=== PATIENT | female | born 1960 | race Caucasian/White ===

== ENCOUNTER → 2016-12-28 | Outpatient (CLI) | payer BC ==
[~2016-12-28] MED LIST: ANTIDEPRESSANT
== END | disposition home or self-care (01) ==
LOC: C.PAPS 11:20
PROVIDERS: ATTEND Obstetrics & Gynecology
DX: Z01.419 Encounter for gynecological examination (general) (routine) without abnormal findings (principal)

== ENCOUNTER → 2016-12-28 | Outpatient (CLI) | payer BC ==
--- NOTE | 2016-12-28 13:42 | MAMMOGRAPHY REPORT ---
BILATERAL DIGITAL SCREENING MAMMOGRAM TOMOSYNTHESIS WITH CAD: 12/28/2016 CLINICAL HISTORY: Routine screening. Patient has no complaints. TECHNIQUE: Breast tomosynthesis in addition to standard 2D mammography was performed. Current study was also evaluated with a Computer Aided Detection (CAD) system. COMPARISON: Comparison is made to exams dated: 01/01/2015 ultrasound, 01/01/2015 mammogram, 12/19/2014 ma mmogram, and 07/02/2004 mammogram - [facility]. BREAST COMPOSITION: The tissue of both breasts is heterogeneously dense, which may obscure small mas ses. FINDINGS: No suspicious masses, calcifications, or areas of architectural distortion are noted in ei ther breast. There has been no significant interval change compared to prior exams. IMPRESSION: ACR BI-RADS CATEGORY 1: NEGATIVE There is no mammographic evidence of malignancy. A 1 year screening mammogram is recommended. The pa tient will receive written notification of the results. Approximately 10% of breast cancers are not detected with mammography. A negative mammographic report should not delay biopsy if a clinically suggestive mass is present. Theodora Malave M.D. ah/:12/28/2016 12:28:02 Collet Maker: Melissa MATHEWS(R)(M), [facility] letter sent: Normal 1/2 BI-RADS Code: ACR BI-RADS Category 1: Negative
== END | disposition home or self-care (01) ==
LOC: C.MAMM 10:55
PROVIDERS: ATTEND Obstetrics & Gynecology
DX: Z12.31 Encounter for screening mammogram for malignant neoplasm of breast (principal)

== ENCOUNTER → 2017-04-28 | Outpatient (CLI) | payer BC | END | disposition home or self-care (01) | LOC: C.LAB 19:24 | PROVIDERS: ATTEND Physician Assistant Medical | DX: M79.89 Other specified soft tissue disorders (principal) ==

== ENCOUNTER 2017-05-05 16:05 | Emergency (ER) | payer BC ==
[~2017-05-05] VITALS: Ht 161.3 cm; Wt 72.0 kg
[2017-05-05 16:13] VITALS: TEMP 36.5; Ht 161.3 cm; Wt 72.0 kg
[2017-05-05] MEDS ORDERED: ACETAMINOPHEN 500 MG TAB PO STA (17:33)
[2017-05-05] MEDS ORDERED: ONDANSETRON INJ 2 MG/ML 2 ML VIAL IV STA (17:33)
[2017-05-05] MEDS ORDERED: GI COCKTAIL PO STA (17:33)
--- NOTE | 2017-05-05 17:39 | EMERGENCY ROOM VISIT NOTE ---
History Report prepared by Ann: Carlo Palencia Under the Supervision of: Dr. Rangel Navarro M.D. First contact with patient: 17:14 Chief Complaint: ALLERGIC REACTION Stated Complaint: STOMACH PAIN;ALLERGIC REACTION TO MEDICATION Nursing Triage Summary: Pt states, "I had an infection in my finger, which I still have. I have been taking three different abx. I am either having a reaction to Bactrim or Penicillin. They told me to take Zantac and Zyrtec. My back and my stomach are hurting me so bad. I have been to the dr six times, I was just there today. My stomach started to hurt really bad today." Nausea. Denies SOB and lightheadedness. History of Present Illness The patient is a 57 year old white female with no past medical history who presents to the ED with a cc of constant, severe, sharp, abdominal pain beginning last night. Pt states she has been experiencing an infection on her right hand for the past two weeks. She reports she was placed on an antibiotic for four days, and then Bactrim and Penicillin. Pt notes she had an allergic reaction to one of them 2 days ago. She was told to take Zantac and Zyrtec, but nothing is helping. Positive nausea, rash, hives. Negative vomiting, recent travel. LNBM was yesterday. Still has gallbladder. Pt works at airport. Source of History: patient Onset: last night Position: abdomen Symptom Intensity: severe Quality: sharp Timing: constant Associated Symptoms: + nausea, + rash (and hives), No vomiting Review of Systems See HPI for pertinent positives and negatives. A total of ten systems were reviewed and were otherwise negative. Past Medical & Surgical Medical Problems: (1) No Known Active Medical Problems Family History Patient reports no known family medical history. Social History Smoking Status: Former Smoker Marital Status: Occupation Status: employed Current/Historical Medications Scheduled Cetirizine (Zyrtec), 10 MG PO DAILY Ondasetron Odt (Zofran Odt), 4 MG SL Q6H Ranitidine Hcl (Zantac), 150 MG PO DAILY Tramadol Hcl (Ultram), 50 MG PO Q8H Allergies Coded Allergies: Iodine (Unverified Allergy, Severe, ., 05/05/17) Shellfish Allergy (Unverified Allergy, Severe, ., 05/05/17) Penicillin V (Unverified Allergy, Intermediate, RASH, 05/05/17) PATIENT DEVELOPED ITCHY RASH ON DAY 6 OF PENICILLIN/BACTRIM COMBINATION THERAPY. PATIENT DOES NOT RECALL RECEIVING EITHER PENICILLIN OR BACTRIM PRIOR TO THIS COURSE Sulfamethoxazole w/Trimethoprim (Verified Allergy, Intermediate, RASH, 05/05/17) PATIENT DEVELOPED ITCHY RASH ON DAY 6 OF PENICILLIN/BACTRIM COMBINATION THERAPY. PATIENT DOES NOT RECALL RECEIVING EITHER PENICILLIN OR BACTRIM PRIOR TO THIS COURSE Physical Exam Vital Signs Date Time Temp Pulse Resp B/P (MAP) Pulse Ox O2 Delivery O2 Flow Rate FiO2 05/05/17 21:45 77 18 141/82 95 Room Air 05/05/17 21:00 85 16 145/79 95 Room Air 05/05/17 19:22 73 18 144/80 98 Room Air 05/05/17 17:50 73 18 152/85 99 Room Air 05/05/17 16:13 36.5 77 18 146/78 96 Room Air 05/05/17 16:11 95 Room Air Physical Exam GENERAL: Awake, alert, well-appearing, NAD HENT: Normocephalic, atraumatic. Posterior pharynx is clear with no edema or erythema. No sloughing of interoral mucosa. EYES: Normal conjunctiva. Sclera non-icteric. No conjunctival injection NECK: Supple. No nuchal rigidity. FROM. No stridor RESPIRATORY: CTAB, no rhonchi, wheezing, crackles CARDIAC: RRR, no MRG ABDOMEN: Soft, ND, BS+, mild epigastric and RUQ pain, negative Ventura's MSK: No chest wall TTP, no LE edema NEURO: GCS 15, CN 2-12 intact, moves all 4s on command SKIN: No jaundice noted. No sloughing of skin. Right first index finger has some peeling. Medical Decision & Procedures ER Provider Diagnostic Interpretation: Radiology results as stated below per my review and radiologist interpretation: ABDOMEN 2VIEW W/PA CHEST RTN HISTORY: 57 years-old Female ABDOMINAL PAIN/GI acute generalized abdominal pain COMPARISON: None available TECHNIQUE: PA view of the chest with erect and supine views of the abdomen FINDINGS: Cardiac silhouette is within normal limits. There is mild prominence of the pulmonary arteries. No pneumothorax. Coarsened interstitial opacities are noted within the lung bases suggesting chronic changes, however no comparison available. No pneumothorax, pleural effusion or focal alveolar airspace consolidation. Bones of the chest appear grossly intact. Sigmoidal scoliosis of the thoracolumbar spine. No pneumoperitoneum on the upright projection. Bowel gas pattern is nonobstructive. Probable phleboliths of the pelvis without definite urolith or organomegaly identified. IMPRESSION: 1. Nonobstructive bowel gas pattern without pneumoperitoneum. 2. Mild interstitial coarsening of the lung bases suggests chronic changes. The above report was generated using voice recognition software. It may contain grammatical, syntax or spelling errors. Electronically signed by: Shaun Philippe M.D. 05/05/2017 7:27 PM Dictated Date/Time: 05/05/2017 7:25 PM ABDOMEN AND PELVIS CT WITH IV CONTRAST CT DOSE: 282.17 mGy.cm HISTORY: Acute generalized abdominal pain with nausea ab pain TECHNIQUE: Multiaxial CT images of the abdomen and pelvis were performed following the use of intravenous contrast. 94 no Optiray 320 IV contrast administered. A dose lowering technique was utilized adhering to the principles of ALARA. COMPARISON STUDY: Acute abdominal series radiographs of same day. FINDINGS: Lung bases are generally clear. There is no pneumatosis or pneumoperitoneum identified. Imaged inferior cardiac chambers are unremarkable. The liver, spleen, gallbladder, pancreas and right adrenal gland are unremarkable. Mild thickening of the left adrenal gland. Low attenuating lesions of the kidneys bilaterally suggests cysts, largest of which measures 10 mm within the interpolar left kidney. There is no renal calculi or hydronephrosis identified. The ureters, urinary bladder, uterus and adnexa are unremarkable. The aorta is normal in course and caliber. No aneurysm. No bulky retroperitoneal adenopathy identified. Small sliding-type hiatal hernia with fluid-filled distal esophagus. Fluid-filled stomach is noted. There is mild wall thickening in the region of the gastric antrum and pylorus. No significant surrounding inflammatory stranding. No bowel obstruction or focal small bowel wall thickening. There is decreased luminal caliber with wall thickening and relative ahaustral fold pattern involving the colon extending from the mid transverse colon through the mid sigmoid without significant surrounding inflammatory stranding. The appendix appears normal. Soft tissues are unremarkable. The bones appear intact. Only mild degenerative changes are noted. IMPRESSION: 1. Decreased luminal caliber with wall thickening involving the colon extends from the mid transverse colon through the mid sigmoid without significant surrounding inflammatory stranding. These findings may be secondary to nondistention or mild colitis. Correlate with clinical exam and patient history. 2. Small sliding-type hiatal hernia with fluid within the distal esophagus suggesting reflux. 3. Suggestion of mild nonspecific wall thickening involving the distal gastric antrum/pylorus. 4. Normal appendix. Electronically signed by: Shaun Philippe M.D. 05/05/2017 9:10 PM Dictated Date/Time: 05/05/2017 9:00 PM Laboratory Results 05/05/17 17:45 Red Blood Count 4.26, Mean Corpuscular Volume 90.8, Mean Corpuscular Hemoglobin 31.2, Mean Corpuscular Hemoglobin Concent 34.4, Mean Platelet Volume 10.7, Neutrophils (%) (Auto) 78.9, Lymphocytes (%) (Auto) 14.3, Monocytes (%) (Auto) 5.8, Eosinophils (%) (Auto) 0.5, Basophils (%) (Auto) 0.1, Neutrophils # (Auto) 6.29, Lymphocytes # (Auto) 1.14, Monocytes # (Auto) 0.46, Eosinophils # (Auto) 0.04, Basophils # (Auto) 0.01 05/05/17 17:45 Test 05/05/17 17:45 05/05/17 19:18 White Blood Count 7.97 K/uL (4.8-10.8) Red Blood Count 4.26 M/uL (4.2-5.4) Hemoglobin 13.3 g/dL (12.0-16.0) Hematocrit 38.7 % (37-47) Mean Corpuscular Volume 90.8 fL (80-100) Mean Corpuscular Hemoglobin 31.2 pg (25-34) Mean Corpuscular Hemoglobin Concent 34.4 g/dl (32-36) Platelet Count 274 K/uL (130-400) Mean Platelet Volume 10.7 fL (7.4-10.4) Neutrophils (%) (Auto) 78.9 % Lymphocytes (%) (Auto) 14.3 % Monocytes (%) (Auto) 5.8 % Eosinophils (%) (Auto) 0.5 % Basophils (%) (Auto) 0.1 % Neutrophils # (Auto) 6.29 K/uL (1.4-6.5) Lymphocytes # (Auto) 1.14 K/uL (1.2-3.4) Monocytes # (Auto) 0.46 K/uL (0.11-0.59) Eosinophils # (Auto) 0.04 K/uL (0-0.5) Basophils # (Auto) 0.01 K/uL (0-0.2) RDW Standard Deviation 40.0 fL (36.4-46.3) RDW Coefficient of Variation 12.2 % (11.5-14.5) Immature Granulocyte % (Auto) 0.4 % Immature Granulocyte # (Auto) 0.03 K/uL (0.00-0.02) Anion Gap 7.0 mmol/L (3-11) Est Creatinine Clear Calc Drug Dose 76.6 ml/min Estimated GFR () 98.6 Estimated GFR (Non- 85.1 BUN/Creatinine Ratio 10.4 (10-20) Calcium Level 8.8 mg/dl (8.5-10.1) Total Bilirubin 0.4 mg/dl (0.2-1) Direct Bilirubin < 0.1 mg/dl (0-0.2) Aspartate Amino Transf (AST/SGOT) 22 U/L (15-37) Alanine Aminotransferase (ALT/SGPT) 32 U/L (12-78) Alkaline Phosphatase 70 U/L (45-117) Troponin I < 0.015 ng/ml (0-0.045) Total Protein 7.8 gm/dl (6.4-8.2) Albumin 3.7 gm/dl (3.4-5.0) Lipase 224 U/L (73-393) Urine Color YELLOW Urine Appearance TURBID (CLEAR) Urine pH >= 9.0 (4.5-7.5) Urine Specific [place] 1.022 (1.000-1.030) Urine Protein NEG (NEG) Urine Glucose (UA) NEG (NEG) Urine Ketones 1+ (NEG) Urine Occult Blood NEG (NEG) Urine Nitrite NEG (NEG) Urine Bilirubin NEG (NEG) Urine Urobilinogen NEG (NEG) Urine Leukocyte Esterase TRACE (NEG) Urine WBC (Auto) 1-5 /hpf (0-5) Urine RBC (Auto) 0-4 /hpf (0-4) Urine Hyaline Casts (Auto) 0 /lpf (0-5) Urine Epithelial Cells (Auto) 20-30 /lpf (0-5) Urine Bacteria (Auto) NEG (NEG) Urine Crystals AMORPHOUS SEDIMENT (NONE Laboratory results reviewed by me Medications Administered Medications (Trade) Dose Ordered Sig/Kelsey Route Start Time Stop Time Status Last Admin Dose Admin Ondansetron HCl (Zofran Inj) 4 mg NOW STAT IV 05/05/17 17:33 05/05/17 17:35 DC 05/05/17 17:56 4 MG Acetaminophen (Tylenol Tab) 1,000 mg NOW STAT PO 05/05/17 17:33 05/05/17 17:35 DC 05/05/17 17:58 1,000 MG Famotidine (Pepcid Tab) 20 mg NOW ONCE PO 05/05/17 17:45 05/05/17 17:46 DC 05/05/17 17:57 20 MG Lidocaine HCl (Viscous Lidocaine 2% Soln) 20 ml STK-MED ONCE .ROUTE 05/05/17 17:52 05/05/17 17:53 DC 05/05/17 17:57 20 ML Al Hydroxide/Mg Hydroxide (Maalox Susp) 30 ml STK-MED ONCE .ROUTE 05/05/17 17:52 05/05/17 17:53 DC 05/05/17 17:57 30 ML Morphine Sulfate (MoRPHine SULFATE INJ) 6 mg NOW STAT IV 05/05/17 18:57 05/05/17 18:58 DC 05/05/17 19:16 6 MG Diphenhydramine HCl (Benadryl Inj) 25 mg NOW STAT IV 05/05/17 20:12 05/05/17 20:13 DC 05/05/17 20:20 25 MG ECG Indication: abdominal pain Rate (beats per minute): 70 Rhythm: normal sinus Findings: other (Normal interval and axis, no other STS changes or TWI) ED Course 1720: The patient was evaluated in room C08. A complete history and physical exam was performed. 1851: I reevaluated the patient. I told her that her blood work looks not concerning. She is still not feeling well. 1950: I reevaluated the patient. She is currently getting a CT scan. 2133: I reevaluated the patient. Discussed results and discharge instructions: she verbalized understanding and agreement. The patient is ready for discharge. Medical Decision The patient is a 57 year old white female with no past medical history who presents to the ED with a cc of constant, severe, sharp, abdominal pain beginning last night. Differential diagnosis: Etiologies such as appendicitis, diverticulitis, PUD, biliary pathology, UTI, pancreatitis, obstruction, mesenteric ischemia, aortic pathology, infections, inflammatory bowel disease, renal colic, as well as others were entertained. Patient was seen and evaluated the bedside. Patient did have a recent right index finger infection for which she was started on penicillin and Bactrim. This was initiated on Monday she noticed some symptoms about 4-5 days later. She states she had a mild rash. She denies any shortness of breath or chest pain. Patient has had some gastrointestinal symptoms. She's had nausea without vomiting. Patient had a recent bowel movement which was normal. Patient denies any other recent travel or changes in diet. On exam the patient is very well-appearing does not exhibit any rashes and does not involve the oral or conjunctival mucosa. Patient does not have any petechiae or purpura. Patient did have blood work that was completed along with symptomatically control. Upon reassessment patient was still feeling mildly uncomfortable. Patient is white blood cell count within normal limits. Patient has no elevations in her LFTs or lipase. Patient troponin negative. Patient had a nonischemic EKG. I doubt this is atypical chest pain or ACS. Patient did have a urinalysis added along with plain films. Patient was given additional pain medication. Patient's CT did show some nonspecific colitis without any obstruction. I did inform the patient for findings. Patient was told to try yogurt a probiotic to continue take pain medication. Patient was told to stop the antibiotics and watch the finger. Given that the finger appears much improved at the patient intimated appears as though she likely had some significant swelling that the skin will eventually fall off as it was likely edematous beforehand. Patient does have follow-up for the finger on Monday. Patient was agreeable with this plan of care. Patient was deemed suitable for outpatient follow-up and treatment. Patient was given strict follow-up, discharge, and return precautions. All questions were answered. Patient was deemed suitable for outpatient follow-up at this time. Patient agreed with the plan of care and was safely discharged home. Impression Primary Impression: Adverse reaction to drug Additional Impressions: Abdominal pain Acute colitis Scribe Attestation The scribe's documentation has been prepared under my direction and personally reviewed by me in its entirety. I confirm that the note above accurately reflects all work, treatment, procedures, and medical decision making performed by me. Departure Information Dispostion Home / Self-Care Prescriptions Ondasetron Odt (ZOFRAN ODT) 4 Mg Tab 4 MG SL Q6H for Nausea, #6 TAB Prov: Rangel Navarro M.D. 05/05/17 Tramadol Hcl (ULTRAM) 50 Mg Tab 50 MG PO Q8H, #12 TAB PRN PAIN Prov: Rangel Navarro M.D. 05/05/17 Referrals Aaron Houston M.D. (PCP) Forms HOME CARE DOCUMENTATION FORM, IMPORTANT VISIT INFORMATION Patient Instructions ED Gastroenteritis Viral, My [facility] Additional Instructions Please return to the emergency department if you have worsening or recurrent symptoms not amenable to at-home treatment. Please call for a follow-up appointment with her primary care physician. Please take your medications as prescribed. If you have other concerns and/or complaints please feel free to also call your primary care physician's office or return the ED for further evaluation, management, and treatment. You may take tylenol 1000 mg every 6 hours as needed for pain. You may take some Motrin/Advil as needed but know it may cause some upset stomach. Consider eating yogurt or taking a probiotic. Monitor your finger wound and keep your follow up with your physician on Monday. Stop taking your antibiotic medications. Take all other medications as prescribed. You have been examined and treated today on an emergency basis only. This is not a substitute for, or an effort to provide, complete comprehensive medical care. It is impossible to recognize and treat all injuries or illnesses in a single emergency department visit. It is therefore important that you follow up closely with [facility], your PCP, and/or your specialist(s). Call as soon as possible for an appointment. Thank you for your time and consideration. I look forward to speaking with you again soon. Please don't hesitate to call us if you have any questions. Problem Qualifiers Primary Impression: Adverse reaction to drug Encounter type: initial encounter Qualified Codes: T88.7XXA - Unspecified adverse effect of drug or medicament, initial encounter Additional Impressions: Abdominal pain Abdominal location: right upper quadrant Qualified Codes: R10.11 - Right upper quadrant pain
[2017-05-05] MEDS ORDERED: FAMOTIDINE 20 MG TAB PO ONE (17:45)
[2017-05-05] MEDS ORDERED: LIDOCAINE HCL 2% VISC SOLN 20 ML UDC ONE (17:52)
[2017-05-05] MEDS ORDERED: ALUMINUM/MAGNESIUM SUSP 30 ML UDC ONE (17:52)
[2017-05-05 18:03] LABS: BASO % 0.1 %; BASO ABS # 0.01 K/uL (0-0.2); COMPLETE YES; EOS % 0.5 %; HEMATOCRIT 38.7 % (37-47); IG% 0.4 %; LYMPH % 14.3 %; LYMPH ABS # 1.14 K/uL (1.2-3.4); MEAN CELL VOLUME 90.8 fL (80-100); MEAN CORPUSCULAR HEMOGLOBIN 31.2 pg (25-34); MEAN CORPUSCULAR HGB CONC 34.4 g/dl (32-36); MEAN PLATELET VOLUME 10.7 fL (7.4-10.4); MONO % 5.8 %; NEUT % 78.9 %; PLATELET COUNT 274 K/uL (130-400); RED BLOOD COUNT 4.26 M/uL (4.2-5.4); WHITE BLOOD COUNT 7.97 K/uL (4.8-10.8)
[2017-05-05] MEDS ORDERED: CETI10TA84 PO (18:15)
[2017-05-05] MEDS ORDERED: RANI150T3 PO (18:15)
[2017-05-05 18:24] LABS: ALT/SGPT 32 U/L (12-78); AST/SGOT 22 U/L (15-37); BLOOD UREA NITROGEN 8 mg/dl (7-18); BUN/CREATININE RATIO 10.4 (10-20); CALCIUM 8.8 mg/dl (8.5-10.1); CARBON DIOXIDE 22 mmol/L (21-32); CHLORIDE 100 mmol/L (98-107); CREATININE 0.77 mg/dl (0.60-1.20); GLUCOSE 124 mg/dl (70-99); POTASSIUM 3.7 mmol/L (3.5-5.1); SODIUM 129 mmol/L (136-145)
[2017-05-05 18:29] LABS: ALKALINE PHOSPHATASE 70 U/L (45-117)
[2017-05-05] MEDS ORDERED: MoRPHine SULFATE 10 MG/ML CARP/VIAL IV STA (18:57)
--- NOTE | 2017-05-05 19:28 | DIAGNOSTIC IMAGING REPORT ---
ABDOMEN 2VIEW W/PA CHEST RTN HISTORY: 57 years-old Female ABDOMINAL PAIN/GI acute generalized abdominal pain COMPARISON: None available TECHNIQUE: PA view of the chest with erect and supine views of the abdomen FINDINGS: Cardiac silhouette is within normal limits. There is mild prominence of the pulmonary arteries. No pneumothorax. Coarsened interstitial opacities are noted within the lung bases suggesting chronic changes, however no comparison available. No pneumothorax, pleural effusion or focal alveolar airspace consolidation. Bones of the chest appear grossly intact. Sigmoidal scoliosis of the thoracolumbar spine. No pneumoperitoneum on the upright projection. Bowel gas pattern is nonobstructive. Probable phleboliths of the pelvis without definite urolith or organomegaly identified. IMPRESSION: 1. Nonobstructive bowel gas pattern without pneumoperitoneum. 2. Mild interstitial coarsening of the lung bases suggests chronic changes. The above report was generated using voice recognition software. It may contain grammatical, syntax or spelling errors. Electronically signed by: Shaun Philippe M.D. 05/05/2017 7:27 PM Dictated Date/Time: 05/05/2017 7:25 PM
[2017-05-05 19:50] LABS: URINE APPEARANCE TURBID (CLEAR); URINE BILIRUBIN NEG (NEG); URINE COLOR YELLOW; URINE EPITHELIAL CELL AUTO 20-30 /lpf (0-5); URINE NITRITE NEG (NEG); URINE PH >= 9.0 (4.5-7.5); URINE SPECIFIC GRAVITY 1.022 (1.000-1.030); UROBILINOGEN NEG (NEG); ZZUR CULT IF INDIC CLEAN CATCH NO
[2017-05-05 19:52] LABS: MANUAL MICROSCOPIC REQUIRED? NO; REVIEW REQ? YES
[2017-05-05] MEDS ORDERED: DiphenhydrAMINE HCL 50 MG/ML VIAL IV STA (20:12)
[2017-05-05] MEDS ORDERED: OPTIRAY 320 IV PRN (20:30)
--- NOTE | 2017-05-05 21:11 | DIAGNOSTIC IMAGING REPORT ---
ABDOMEN AND PELVIS CT WITH IV CONTRAST CT DOSE: 282.17 mGy.cm HISTORY: Acute generalized abdominal pain with nausea ab pain TECHNIQUE: Multiaxial CT images of the abdomen and pelvis were performed following the use of intravenous contrast. 94 no Optiray 320 IV contrast administered. A dose lowering technique was utilized adhering to the principles of ALARA. COMPARISON STUDY: Acute abdominal series radiographs of same day. FINDINGS: Lung bases are generally clear. There is no pneumatosis or pneumoperitoneum identified. Imaged inferior cardiac chambers are unremarkable. The liver, spleen, gallbladder, pancreas and right adrenal gland are unremarkable. Mild thickening of the left adrenal gland. Low attenuating lesions of the kidneys bilaterally suggests cysts, largest of which measures 10 mm within the interpolar left kidney. There is no renal calculi or hydronephrosis identified. The ureters, urinary bladder, uterus and adnexa are unremarkable. The aorta is normal in course and caliber. No aneurysm. No bulky retroperitoneal adenopathy identified. Small sliding-type hiatal hernia with fluid-filled distal esophagus. Fluid-filled stomach is noted. There is mild wall thickening in the region of the gastric antrum and pylorus. No significant surrounding inflammatory stranding. No bowel obstruction or focal small bowel wall thickening. There is decreased luminal caliber with wall thickening and relative ahaustral fold pattern involving the colon extending from the mid transverse colon through the mid sigmoid without significant surrounding inflammatory stranding. The appendix appears normal. Soft tissues are unremarkable. The bones appear intact. Only mild degenerative changes are noted. IMPRESSION: 1. Decreased luminal caliber with wall thickening involving the colon extends from the mid transverse colon through the mid sigmoid without significant surrounding inflammatory stranding. These findings may be secondary to nondistention or mild colitis. Correlate with clinical exam and patient history. 2. Small sliding-type hiatal hernia with fluid within the distal esophagus suggesting reflux. 3. Suggestion of mild nonspecific wall thickening involving the distal gastric antrum/pylorus. 4. Normal appendix. Electronically signed by: Shaun Philippe M.D. 05/05/2017 9:10 PM Dictated Date/Time: 05/05/2017 9:00 PM
[2017-05-05 21:45] VITALS: BP 141/82; PULSE 77; O2SAT 95
[2017-05-05] MEDS ORDERED: TRAM-453 PO (21:48)
[2017-05-05] MEDS ORDERED: ONDA4TAB10 SL (21:48)
== END 2017-05-05 22:14 | disposition home or self-care (01) ==
LOC: C.EDB 16:09 → C.EDC 22:14
DX: T88.7XXA Unspecified adverse effect of drug or medicament, initial encounter (principal); R10.11 Right upper quadrant pain; K52.9 Noninfective gastroenteritis and colitis, unspecified; Z87.891 Personal history of nicotine dependence; X58.XXXA Exposure to other specified factors, initial encounter

== ENCOUNTER → 2017-07-10 | Outpatient (CLI) | payer OTHER ==
[~2017-07-10] MED LIST changes: -ANTIDEPRESSANT; +CETI10TA84 PO; +ONDA4TAB10 SL; +RANI150T3 PO
[2017-07-13 12:57] LABS: HERPES SIMPLEX VIRUS CULT NOT ISOLATED (NOT ISOLATED)
== END | disposition home or self-care (01) ==
LOC: C.LABSPEC 15:59
PROVIDERS: ATTEND Physician Assistant
DX: N76.6 Ulceration of vulva (principal); N94.10 Unspecified dyspareunia

== ENCOUNTER → 2017-07-14 | Outpatient (CLI) | payer OTHER | END | disposition home or self-care (01) | LOC: C.PATHSPEC 15:57 | PROVIDERS: ATTEND Obstetrics & Gynecology | DX: A63.0 Anogenital (venereal) warts (principal); N76.6 Ulceration of vulva; N76.2 Acute vulvitis; D07.1 Carcinoma in situ of vulva ==

== ENCOUNTER → 2017-07-31 | Outpatient (CLI) | payer OTHER ==
--- NOTE | 2017-07-31 14:59 | DIAGNOSTIC IMAGING REPORT ---
CHEST 2 VIEWS ROUTINE HISTORY: 57 years-old Female PRE OP TESTING preoperative exam. No acute chest complaints. COMPARISON: Acute abdominal series radiographs 05/05/2017 TECHNIQUE: PA and lateral views of the chest FINDINGS: Mild chronic interstitial coarsening is again noted bilaterally. Cardiomediastinal and hilar silhouettes are within normal limits. Atherosclerosis of the aorta. No pneumothorax, pleural effusion, focal airspace consolidation or overt pulmonary edema. Bones of the chest appear grossly intact. Levoscoliosis of the lower thoracic spine with mild tortuosity of the descending thoracic aorta. IMPRESSION: No acute process. The above report was generated using voice recognition software. It may contain grammatical, syntax or spelling errors. Electronically signed by: Shaun Philippe M.D. 07/31/2017 2:58 PM Dictated Date/Time: 07/31/2017 2:56 PM
[2017-07-31 15:39] LABS: HEMATOCRIT 41.6 % (37-47); HEMOGLOBIN 13.8 g/dL (12.0-16.0); MEAN CELL VOLUME 94.3 fL (80-100); MEAN CORPUSCULAR HEMOGLOBIN 31.3 pg (25-34); MEAN CORPUSCULAR HGB CONC 33.2 g/dl (32-36); MEAN PLATELET VOLUME 11.4 fL (7.4-10.4); PLATELET COUNT 235 K/uL (130-400); RED CELL DISTRIBUTION WIDTH CV 12.9 % (11.5-14.5); WHITE BLOOD COUNT 7.03 K/uL (4.8-10.8)
[2017-07-31 16:07] LABS: ALBUMIN 3.5 gm/dl (3.4-5.0); ALT/SGPT 26 U/L (12-78); BLOOD UREA NITROGEN 13 mg/dl (7-18); CALCIUM 8.9 mg/dl (8.5-10.1); CARBON DIOXIDE 31 mmol/L (21-32); CREATININE 0.77 mg/dl (0.60-1.20); GLUCOSE 89 mg/dl (70-99); POTASSIUM 3.8 mmol/L (3.5-5.1); SODIUM 140 mmol/L (136-145)
[2017-07-31 16:10] LABS: ALKALINE PHOSPHATASE 74 U/L (45-117); AST/SGOT 19 U/L (15-37); TOTAL PROTEIN 7.4 gm/dl (6.4-8.2)
== END | disposition home or self-care (01) ==
LOC: C.RAD 14:20
PROVIDERS: ATTEND Obstetrics & Gynecology Gynecologic Oncology
DX: N90.3 Dysplasia of vulva, unspecified (principal); Z01.818 Encounter for other preprocedural examination